=== PATIENT | male | born 1990 | race Caucasian/White ===

== ENCOUNTER 2018-09-12 18:39 | Emergency (ER) | payer SELFPAY, OTHER ==
[2018-09-12] MEDS: MECLIZINE 12.5 MG TAB PO (21:38)
[2018-09-12] MEDS: ONDANSETRON (ODT) 4 MG TAB ODT (21:38)
[2018-09-12] MEDS: IBUPROFEN 800 MG TAB PO (21:38)
== END 2018-09-12 21:50 | disposition home or self-care (01) ==
LOC: FTE 18:39
DX: R51 Headache (principal)
CPT/HCPCS: 99283